=== PATIENT | female | born 1980 | race Caucasian/White ===

== ENCOUNTER 2019-01-23 14:41 | Outpatient (CLI) | payer MEDICARE, MEDICAID | END 2019-01-23 23:59 | disposition home or self-care (01) | LOC: VAS 14:41 | PROVIDERS: ATTEND Student in an Organized Health Care Education/Training Program | DX: R60.0 Localized edema (principal) | CPT/HCPCS: 93970 ==

== ENCOUNTER 2025-04-24 06:08 | Outpatient (CLI) | payer MEDICARE, MEDICAID ==
[2025-04-24] MEDS ORDERED: LIDOcaine 1%/PF 5ML 10 MG/ML VIAL ONE (06:32)
[2025-04-24] MEDS ORDERED: iohexol 300 MG/1 ML 50ml polymer ONE (06:32)
[2025-04-24] MEDS ORDERED: LIDOcaine 1% 30ml preserv. free vial ONE (06:32)
[2025-04-24] MEDS ORDERED: GADOTERATE MEGLUMINE 7.5 MMOL/15 ML VIAL IV ONE (06:32)
--- NOTE | 2025-04-24 08:07 | RADIOLOGY REPORT ---
CLINICAL HISTORY: PAIN IN RIGHT SHOULDER TECHNIQUE: Multisequence multiplanar MR arthrogram images of the right shoulder were obtained after the uneventful intra-articular administration of dilute gadolinium contrast under fluoroscopic guidance. For details concerning the contrast injection, refer to the separately dictated same-day conventional arthrogram report. COMPARISON: None FINDINGS: Acromioclavicular joint: There is mild acromioclavicular hypertrophy and mild edema. There is type 1 acromion. Trace amount of fluid in the subacromial / subdeltoid bursa. No contrast in the subacromial / subdeltoid bursa. Rotator cuff tendons: Mild tendinosis of the distal supraspinatus and infraspinatus tendons. There is articular surface fraying and likely small partial-thickness articular surface tear involving the distal fibers of the infraspinatus tendon just proximal to the insertion measuring up to 0.8 cm in proximal to distal dimension and 0.7 cm in AP dimension, involving less than 50% of the tendon thickness. Subscapularis and teres minor tendons are intact. Biceps tendon: No significant tendinosis. No evidence of attrition or tear. Labrum: There is tear of the superior labrum extending anterior to posterior, extending to the level of the biceps anchor, without propagation of the tear into the long head biceps tendon. The tear extends to the posterior superior labrum and posterior labrum. Bones: No fracture or focal marrow contusion. Muscles: Normal muscle bulk. No atrophy. Other: No other significant findings. IMPRESSION: 1. Tear of the superior labrum extending anterior to posterior and extending to the posterior superior and posterior labrum. 2. Rotator cuff tendinosis with articular surface fraying and suspected small partial-thickness articular surface tear of the distal infraspinatus tendon just proximal to its insertion. 3. Mild acromioclavicular hypertrophy with trace fluid in the subacromial / subdeltoid bursa. 4. Additional findings as described above.
--- NOTE | 2025-04-24 09:54 | RADIOLOGY REPORT ---
C-ARM FLUOROSCOPY: PROCEDURE: Right shoulder MRI arthrogram FLUOROSCOPY TIME: 0.1 Air Kerma: 1 mgy FINDINGS: Spot intraoperative C arm radiographs demonstrating right shoulder MRI arthrogram. IMPRESSION: Please refer to surgical report for detailed findings.
== END 2025-04-24 23:59 | disposition home or self-care (01) ==
LOC: MRI 06:08
PROVIDERS: ATTEND Pediatrics Sports Medicine
DX: S43.431A Superior glenoid labrum lesion of right shoulder, initial encounter (principal); M19.011 Primary osteoarthritis, right shoulder; M75.41 Impingement syndrome of right shoulder; M75.31 Calcific tendinitis of right shoulder; M25.511 Pain in right shoulder; Z79.1 Long term (current) use of non-steroidal anti-inflammatories (NSAID); Z79.899 Other long term (current) drug therapy; X58.XXXA Exposure to other specified factors, initial encounter; Y93.89 Activity, other specified; Y92.89 Other specified places as the place of occurrence of the external cause; Y99.8 Other external cause status
CPT/HCPCS: 23350; 73222; 77002; A9575; J2003; J3490; Q9967